=== PATIENT | female | born 1965 | race Caucasian/White ===

== ENCOUNTER 2016-04-03 18:36 | Emergency (ER) | payer OTHER, MEDICARE ==
[~2016-04-03] VITALS: Ht 154.9 cm; Wt 84.4 kg
[~2016-04-03 18:36] MED LIST: ACETAMINOPHEN-O1 TAB PO; ALPRAZOLAM2 MG PO; ALTACE10 M1 PO; CEPHALEXIN500 MG PO; CRESTOR 10MG10 MG PO; CYCLOBENZAPRINE10 M3 PO; DEXILANT60 MG PO; FAMOTIDINE20 MG PO; KEFLEX500 MG PO; LYRICA200 M1 PO; METFORMIN HYDR500 M1 PO; MIRTAZAPINE15 MG PO; MONTELUKAST SOD10 MG PO; NASONEX0.05 MG/Ac INH; NORCO 325 MG-51 TAB PO; NOVOLIN N U SC; PERCOCET 5-3251 EACH PO; PROAIR HFA0.09 MG/Ac INH; SERTRALINE HYD100 MG PO; TOPIRAMATE200 MG PO; VICODIN5-300 PO; VITAMIN D50000 IU PO
[2016-04-03 18:43] VITALS: BP 130/78
== END 2016-04-03 19:00 | disposition admitted as inpatient to this hospital (09) ==
LOC: ERH 18:36
DX: T81.4XXA Infection following a procedure, initial encounter (principal)

== ENCOUNTER 2016-04-13 19:33 | Emergency (ER) | payer OTHER, MEDICARE ==
[~2016-04-13] VITALS: Ht 154.9 cm; Wt 83.5 kg
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
--- NOTE | 2016-04-13 20:47 | RADIOLOGY REPORT ---
EXAMINATION: XR CHEST CLINICAL INFORMATION: Chest pain. COMPARISON: Chest x-ray 04/05/2013. Screening chest CT 06/08/2015. TECHNIQUE: 2 views of the chest were obtained. FINDINGS: The lungs are mildly hypoinflated, without focal airspace consolidation. There is mild peribronchial thickening bilaterally. There is a left upper extremity PICC terminating at the cavoatrial junction. No pleural effusions or pneumothoraces are identified. Cardiomediastinal contours are within normal limits. Soft tissues are unremarkable. No acute osseous abnormality is identified. IMPRESSION: Mild peribronchial thickening bilaterally. This finding is entirely nonspecific but could reflect an infectious or inflammatory bronchiolitis in the appropriate clinical setting. A left upper extremity PICC terminates at the cavoatrial junction.
[2016-04-13 20:48] LABS: ABSOLUTE BASOPHIL COUNT 0 /CUMM (0.0-0.2); ABSOLUTE EOSINOPHIL COUNT 0.1 /CUMM (0.0-0.7); ABSOLUTE GRANULOCYTE CT 8.4 /CUMM (1.4-6.5); ABSOLUTE MONOCYTE COUNT 0.8 /CUMM (0.10-0.60); BASOPHIL % 0.4 % (0.0-2.0); EOSINOPHIL % 1.1 % (0-5); HEMATOCRIT 36.2 % (37-47); MEAN CORPUSCULAR HGB 31.1 PG (27.0-31.0); MEAN CORPUSCULAR HGB CONC 33.8 G/DL (33.0-37.0); MEAN CORPUSCULAR VOLUME 91.9 FL (81.0-99.0); MEAN PLATELET VOLUME 7.9 FL (7.4-10.4); PLATELET COUNT 355 /CUMM (130-400); RBC DISTRIBUTION WIDTH 13.1 % (11.5-14.5); RED BLOOD CELL CT 3.94 /CUMM (4.20-5.40); WHITE BLOOD CELL COUNT 12.4 /CUMM (4.8-10.8)
[2016-04-13 21:43] VITALS: BP 116/74
== END 2016-04-13 21:51 ==
LOC: ERH 19:33
PROVIDERS: Emergency Medicine
DX: R07.89 Other chest pain (principal)
CPT/HCPCS: 93005; 93010

== ENCOUNTER 2016-07-20 14:34 | Emergency (ER) | payer OTHER, MEDICARE ==
[~2016-07-20] VITALS: Ht 154.9 cm; Wt 83.0 kg
[2016-07-20 14:46] VITALS: BP 115/70
== END 2016-07-20 15:50 | disposition admitted as inpatient to this hospital (09) ==
LOC: ERH 14:34
DX: R07.9 Chest pain, unspecified (principal)
CPT/HCPCS: 93005; 93010; 99281

== ENCOUNTER 2016-08-29 11:41 | Emergency (ER) | payer OTHER, MEDICARE ==
[~2016-08-29] VITALS: Ht 154.9 cm; Wt 83.0 kg
== END 2016-08-29 12:25 | disposition admitted as inpatient to this hospital (09) ==
LOC: ERH 11:41
DX: R07.89 Other chest pain (principal); R06.02 Shortness of breath
CPT/HCPCS: 93005; 93010; 99281

== ENCOUNTER 2016-09-16 22:06 | Emergency (ER) | payer OTHER, MEDICARE ==
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
[2016-09-16 22:29] LABS: ABSOLUTE BASOPHIL COUNT 0.1 /CUMM (0.0-0.2); ABSOLUTE EOSINOPHIL COUNT 0.2 /CUMM (0.0-0.7); ABSOLUTE GRANULOCYTE CT 7.4 /CUMM (1.4-6.5); ABSOLUTE LYMPH COUNT 3.5 /CUMM (1.2-3.4); ABSOLUTE MONOCYTE COUNT 0.7 /CUMM (0.10-0.60); BASOPHIL % 0.7 % (0.0-2.0); EOSINOPHIL % 1.4 % (0-5); HEMATOCRIT 42.3 % (37-47); MEAN CORPUSCULAR HGB 30.7 PG (27.0-31.0); MEAN CORPUSCULAR HGB CONC 33.2 G/DL (33.0-37.0); MEAN CORPUSCULAR VOLUME 92.6 FL (81.0-99.0); PLATELET COUNT 307 /CUMM (130-400); RBC DISTRIBUTION WIDTH 13.9 % (11.5-14.5); RED BLOOD CELL CT 4.57 /CUMM (4.20-5.40); WHITE BLOOD CELL COUNT 11.9 /CUMM (4.8-10.8)
[2016-09-17 10:56] VITALS: BP 106/69
== END 2016-09-17 11:28 ==
LOC: ERH 22:06
PROVIDERS: Emergency Medicine
DX: F14.10 Cocaine abuse, uncomplicated (principal); F13.10 Sedative, hypnotic or anxiolytic abuse, uncomplicated; E11.65 Type 2 diabetes mellitus with hyperglycemia; Z79.84 Long term (current) use of oral hypoglycemic drugs
CPT/HCPCS: 80307; 81001; 93005; 93010; 96360; G0480

== ENCOUNTER 2017-04-12 20:22 | Emergency (ER) | payer OTHER ==
[~2017-04-12] VITALS: Ht 152.4 cm; Wt 81.2 kg
[2017-04-12 20:31] VITALS: BP 152/88
--- NOTE | 2017-04-12 22:30 | RADIOLOGY REPORT ---
EXAMINATION: 2 VIEWS OF THE RIGHT FOOT AND 3 VIEWS OF THE RIGHT ANKLE CLINICAL INFORMATION: Trauma COMPARISON: None FINDINGS: Right ankle: There is a transverse fracture through the distal tip of the fibula with overlying soft tissue swelling. No additional fractures are identified. The ankle mortise is intact. There are a few soft tissue calcifications. Right foot: There is no fracture. Chronic ossification along the mid to distal first metatarsal bone. There are a few radiopaque foreign bodies within the soft tissues of the plantar aspect of the foot between the first and second digits and within the plantar soft tissues at the level of the calcaneus. IMPRESSION: - There is a transverse fracture through the distal tip of the fibula with overlying soft tissue swelling. - There are a few radiopaque foreign bodies within the soft tissues of the plantar aspect of the foot between the first and second digits and within the plantar soft tissues at the level of the calcaneus.
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
[2017-04-12] MEDS ORDERED: TYLENOL WITH C1 EACH PO (23:39)
[2017-04-12] MEDS ORDERED: IBUPROFEN800 M1 PO (23:40)
== END 2017-04-12 23:46 ==
LOC: ERH 20:22
DX: S82.831A Other fracture of upper and lower end of right fibula, initial encounter for closed fracture (principal); V49.40XA Driver injured in collision with unspecified motor vehicles in traffic accident, initial encounter; Y92.410 Unspecified street and highway as the place of occurrence of the external cause
CPT/HCPCS: 73610-RT; 73630-RT; J2405

== ENCOUNTER 2017-05-15 16:45 | Emergency (ER) | payer OTHER ==
[~2017-05-15] VITALS: Ht 152.4 cm; Wt 86.2 kg
[~2017-05-15 16:45] MED LIST changes: +IBUPROFEN800 M1 PO; +TYLENOL WITH C1 EACH PO
[2017-05-15 16:53] VITALS: BP 168/115
== END 2017-05-15 17:16 | disposition admitted as inpatient to this hospital (09) ==
LOC: ERH 16:45
DX: M25.571 Pain in right ankle and joints of right foot (principal)

== ENCOUNTER 2017-06-18 07:00 | Emergency (ER) | payer OTHER ==
[~2017-06-18] VITALS: Ht 152.4 cm; Wt 82.6 kg
[2017-06-18 07:17] VITALS: BP 124/83
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
--- NOTE | 2017-06-18 08:01 | RADIOLOGY REPORT ---
EXAMINATION: XR THORACIC SPINE CLINICAL INFORMATION: Upper right back pain. COMPARISON: Chest radiographs dated 12/08/[address] thorax dated 06/08/2015. TECHNIQUE: 3 views of the thoracic spine were obtained. FINDINGS: There is a mild thoracolumbar dextroscoliosis. A mild anterior wedge compression fracture is again seen of the T7 vertebral body, and there is as well a stable mild compression fracture of the T8 vertebral body. There is multi-level disc space narrowing and spondylosis of the mid to lower thoracic spine. These are not clearly changed from the comparison examinations. A large Schmorl's node is again seen anteriorly at the upper endplate of L1. No acute fracture or spondylolisthesis is seen. The posterior elements are intact. The soft tissue planes are unremarkable. IMPRESSION: 1. There are chronic mild compression fractures of the T7 and T8 vertebral bodies. 2. There is multi-level mid and lower thoracic degenerative disc disease and spondylosis. 3. No acute fracture or spondylolisthesis is seen. 4. There is a mild thoracolumbar dextroscoliosis.
--- NOTE | 2017-06-18 08:04 | RADIOLOGY REPORT ---
EXAMINATION: XR RIBS, RIGHT WITH PA CHEST CLINICAL INFORMATION: Right rib pain. COMPARISON: Prior chest radiograph, most recently 04/13/2016. TECHNIQUE: 3 views of the left ribs were obtained, together with a PA view of the chest. FINDINGS: Lungs are clear. No consolidation, pneumothorax, or pleural effusion. The cardiomediastinal silhouette and pulmonary vasculature are normal. Osseous structures are unremarkable. Ribs are intact. No fractures are identified. IMPRESSION: Unremarkable examination.
[2017-06-18] MEDS ORDERED: NORCO 5-325 TA1 EACH PO ×3 (08:10→08:48)
== END 2017-06-18 08:18 ==
LOC: ERH 07:00
DX: T74.11XA Adult physical abuse, confirmed, initial encounter (principal); S29.9XXA Unspecified injury of thorax, initial encounter; M54.9 Dorsalgia, unspecified; Y04.0XXA Assault by unarmed brawl or fight, initial encounter; Y07.499 Other family member, perpetrator of maltreatment and neglect; Y93.9 Activity, unspecified; Y92.9 Unspecified place or not applicable
CPT/HCPCS: 71100-RT; 72070